=== PATIENT | female | born 1945 | race Caucasian/White ===

== ENCOUNTER 2020-03-18 08:57 | Outpatient (CLI) | payer MEDICARE ==
--- NOTE | 2020-03-18 13:17 | ULT ---
COMPLETE ABDOMEN ULTRASOUND: 03/18/20 INDICATION: History of left sided abdominal pain. TECHNIQUE: Haddad scale, color Doppler with spectral Doppler image were obtained of the abdomen. FINDINGS: Overlying bowel gas slightly limits image detail. The visualized aspects of the abdominal aorta and IVC were within normal limits. No focal hepatic lesion is evident. The gallbladder appears within normal limits. No sonographic Murp hy's sign is reported. Common bile duct measures 4 mm. The visualized aspects of the pancreas were un remarkable appearing. The right kidney measures 9.6 x 4.6 x 4.7 cm. Left kidney measures 9.3 x 4.5 x 4.6 cm. There is a sup erior left renal cyst measuring 4 cm. No hydronephrosis is demonstrated. Appropriate hepatopedal flow is seen within the main portal vein. IMPRESSION: 1. No acute sonographic abnormality within the abdomen. 2. Left renal cyst. POS: BH
== END 2020-03-18 08:58 | disposition home or self-care (01) ==
LOC: BICULT 08:57
PROVIDERS: ATTEND Internal Medicine Gastroenterology
DX: K59.00 Constipation, unspecified (principal); R10.9 Unspecified abdominal pain; N28.1 Cyst of kidney, acquired
CPT/HCPCS: 93975

== ENCOUNTER 2020-10-13 13:41 | Outpatient (CLI) | payer MEDICARE ==
--- NOTE | 2020-10-13 14:52 | RAD ---
Lumbar spine 4 views weightbearing with flexion and extension HISTORY: Low back pain. FINDINGS: There are 5 lumbar type vertebrae. Pedicles are intact. Prominent leftward convex rotatory scoliotic curvature. Vertebral body heights are maintained. Disc space narrowing and endplate sclerosis are most pronounce d at the L2-3 level. Minimal degenerative retrolisthesis at the L2-3 and L3-4 levels does not change upon flexion or exten pratik. Prominent osteophytosis throughout the facets. 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 No acute osseous abnormalities are demonstrat ed.
--- NOTE | 2020-10-13 14:55 | MRI ---
MRI Lumbar Spine Noncontrast: HISTORY: Low back pain on and off for years with tingling in legs. COMPARISON: None FINDINGS: There is a circumscribed hyperintense lesion posterior aspect left kidney with corresponding decrease d T1-weighted signal intensity most compatible with a cyst. A tiny subcentimeter increased T2-weighted signal intensity exophytic cystic lesion is seen inferior pole right kidney which is diff icult to characterize but statistically also represents a cyst. Conus medullaris is normal in morphology and terminates at the L1 level. There is mild atrophy of the paraspinous musculature. Scattered Schmorl's nodes are seen at multiple levels with prominent degenerative changes at the L2-3 level and L4-5 levels. Left convex scoliosis lumbar spine is present. L1-2: Mild disc osteophyte complex and mild facet degenerative changes. There is slight effacement of the anterior aspect of the thecal sac. Neural foramina are patent. L2-3: Prominent endplate degenerative changes. There is severe loss of intervertebral disc height. Br oad-based disc osteophyte complex and mild facet hypertrophic changes are present. Findings result in mild central canal and right-sided neural foraminal narrowing. The left neural foramen is patent. L3-4: Mild loss of intervertebral disc height. Disc osteophyte complex is present resulting in slight effacement of the ventral aspect of the thecal sac. Mild facet degenerative changes are noted. There is no significant central canal narrowing or neural foraminal narrowing. L4-5: Mild disc osteophyte complex. Facet hypertrophic changes are present at this level. There is fl uid signal intensity seen within the right sided facet joint. Mild ligamentous thickening is present. There is mild generalized narrowing of the central spinal canal. There is encroachment on th e traversing bilateral L5 nerve roots. No significant right-sided neural foraminal narrowing is present, and the left neural foramen demonstrates mild narrowing. L5-S1: Loss of intervertebral disc height. Broad-based disc osteophyte complex is present with facet hypertrophic changes. Mild left-sided neural foraminal narrowing is present. The right neural foramen and central canal are patent. IMPRESSION: 1. Left convex scoliosis thoracolumbar spine with multilevel degenerative changes throughout the lumb ar spine. 2. Left renal cyst with probable tiny right renal cyst.
== END 2020-10-13 13:42 | disposition home or self-care (01) ==
LOC: BICMRI 13:41
PROVIDERS: ATTEND Nurse Practitioner Family
DX: M47.26 Other spondylosis with radiculopathy, lumbar region (principal); N28.1 Cyst of kidney, acquired; M41.9 Scoliosis, unspecified
CPT/HCPCS: 72110; 72148

== ENCOUNTER 2022-05-30 11:03 | Outpatient (CLI) | payer MEDICARE | END 2022-05-30 11:04 | disposition home or self-care (01) | LOC: LABBT 11:03 | PROVIDERS: ATTEND Orthopaedic Surgery | DX: Z01.818 Encounter for other preprocedural examination (principal); M17.12 Unilateral primary osteoarthritis, left knee; Z20.822 Contact with and (suspected) exposure to COVID-19 | CPT/HCPCS: 71046; 80048; 81003; 85025; 85610; 86850; 86900; 86901; 87081; 87811; 93005; 93010 ==

== ENCOUNTER 2022-06-04 05:53 | Observation (INO) | payer MEDICARE ==
[2022-05-30 12:18] LABS: #Basophils 0.1 10x3/uL (0.0-0.2); #Eosinphils 0.1 10x3/uL (0.0-0.5); #Monocytes 0.5 10x3/uL (0.0-1.1); #Neutrophils 3.7 10x3/uL (1.5-8.4); %Basophils 1.3 % (0.0-2.0); %Eosinophils 1.3 % (0.0-6.0); %Lymphocytes 27.8 % (18.0-47.0); %Monocytes 8.7 % (0.0-10.0); %Neutrophils 60.2 % (40.0-75.0); Bilirubin Neg (Negative); Blood, Urine 25 (Negative); Clarity Clear (Clear); Glucose, Urine (Dipstick) Normal (Negative); Hemoglobin 13.5 g/dL (12.0-15.5); Ketone, Urine Negative (Negative); Leukocyte 100 (Negative); Mean Corpuscular HGB CONC 35.2 g/dL (32.0-36.0); Mean Corpuscular Hemoglobin 32.2 pg (27.0-33.0); Mean Corpuscular Volume 91.4 fl (81.6-98.3); Mean Platelet Volume 9.4 fl (7.4-10.4); Nitrite Negative (Negative); Platelet Count 253 10x3/uL (150-450); Protein, Urine (Dipstick) Negative (Neg-Trace); RBC Distribution Width 12.7 % (11.5-14.5); Red Blood Cell (RBC) Count 4.19 10x6/uL (3.90-5.03); Urobilinogen Normal mg/dL (Less than 2); White Blood Cell (WBC) Count 6.1 10x3/uL (3.5-10.5)
[2022-05-30 12:36] LABS: Prothrombin Time 10.9 sec (9.5-12.1)
[2022-05-30 12:38] LABS: Anion Gap 13 mmol/L (10-20); BUN (Urea Nitrogen) 11 mg/dL (9.8-20.1); Calc. Creatinine Clearance 0 mL/min (70-130); Calcium 9.4 mg/dL (7.8-10.44); Carbon Dioxide 25 mmol/L (23-31); Chloride 98 mmol/L (98-107); Estimated GFR 80; Glucose 96 mg/dL (83-110); Potassium 4.1 mmol/L (3.5-5.1); Sodium 132 mmol/L (136-145)
[2022-06-01 08:19] VITALS: BMI 28.1
[2022-06-04] MEDS ORDERED: CEFAZOLIN 2 GM VIAL ONE (06:10)
[2022-06-04] MEDS ORDERED: Tranexamic Acid 1,000 MG/10 ML VIAL ONE ×2 (06:10→09:14)
[2022-06-04] MEDS ORDERED: Sodium Chloride 0.9% 100 ML ONE (06:10)
[2022-06-04] MEDS ORDERED: Vancomycin 1 GM/200 ML BAG ONE (06:11)
[2022-06-04] MEDS ORDERED: Midazolam HCl 2 mg/2 ml Vial ONE (06:27)
[2022-06-04] MEDS ORDERED: fentaNYL Citrate/PF 100 MCG/2 ML SYRINGE ONE ×2 (06:27→07:39)
[2022-06-04] MEDS ORDERED: Bupivacaine PF 0.5% 30 ML VIAL ONE (06:32)
[2022-06-04] MEDS ORDERED: Scopolamine 1.5 mg/72 hour Patch ONE (06:41)
[2022-06-04] MEDS ORDERED: Phenylephrine 10 MG/ML VIAL ONE (07:22)
[2022-06-04] MEDS ORDERED: Ondansetron PF 4 MG/2 ML Vial ONE ×3 (07:22→08:30)
[2022-06-04] MEDS ORDERED: Ketorolac Tromethamine 30 MG/ML VIAL ONE (07:22)
[2022-06-04] MEDS ORDERED: ePHEDrine 50 MG/ML VIAL ONE (07:22)
[2022-06-04] MEDS ORDERED: Metoclopramide HCl 10 MG/2 ML VIAL ONE (07:22)
[2022-06-04] MEDS ORDERED: Dexamethasone 20 MG/5 ML VIAL ONE (07:22)
[2022-06-04] MEDS ORDERED: PROPOFOL 200 MG/20 ML VIAL ONE (07:22)
[2022-06-04] MEDS ORDERED: Bupivacaine HCl 0.5%/Epinephrine 1:200,000/PF 30 ml Vial ONE (07:22)
[2022-06-04] MEDS ORDERED: diphenhydrAMINE 50 MG/ML VIAL ONE (07:22)
[2022-06-04] MEDS ORDERED: Zolpidem Tartrate 5 MG TAB PO PRN ×2 (07:29→08:00)
[2022-06-04] MEDS ORDERED: Ondansetron PF 4 MG/2 ML Vial IVP PRN ×2 (07:29→08:00)
[2022-06-04] MEDS ORDERED: Acetaminophen 325 MG TAB PO PRN (07:29)
[2022-06-04] MEDS ORDERED: Promethazine HCl 25 MG/ML VIAL IM PRN ×2 (07:29→08:00)
[2022-06-04] MEDS ORDERED: HYDROcodone/Acetaminophen 10/325 mg Tablet PO PRN ×3 (07:29→08:00)
[2022-06-04] MEDS ORDERED: diphenhydrAMINE 25 MG CAP PO PRN (07:29)
[2022-06-04] MEDS ORDERED: traMADol HCl 50 MG TAB PO PRN ×3 (07:29→08:00)
[2022-06-04] MEDS ORDERED: Fentanyl 100 MCG/2 ML VIAL SLOW IVP PRN ×2 (07:29→07:56)
[2022-06-04] MEDS ORDERED: Tranexamic Acid 1,000 MG in Sodium Chloride 0.9% 100 ML IVPB SCH (07:30)
[2022-06-04] MEDS ORDERED: Loratadine 10 MG TAB PO PRN (07:31)
[2022-06-04] MEDS ORDERED: Ropivacaine 0.2% 550 ML 550 ML NERVE BLCK SCH (08:00)
[2022-06-04] MEDS ORDERED: Calcium Polycarbophil 625 MG TAB PO SCH (09:00)
[2022-06-04] MEDS ORDERED: Fentanyl 100 MCG/2 ML VIAL ONE ×2 (09:18→09:56)
[2022-06-04] MEDS: Aspirin 81 mg Enteric Coated Tablet PO SCH ×2 (11:09→20:55)
[2022-06-04] MEDS: Ketorolac Tromethamine 30 MG/ML VIAL IVP SCH ×3 (12:10→23:29)
[2022-06-04] MEDS: Sodium Chloride 0.9% 1,000 ML IV SCH ×2 (12:13→17:39)
[2022-06-04] MEDS ORDERED: Betamethasone 0.1% Cream 15 GM TUBE TOP PRN (12:34)
[2022-06-04] MEDS: HYDROcodone/Acetaminophen 10/325 mg Tablet PO PRN ×2 (15:51→20:56)
[2022-06-04] MEDS: CEFAZOLIN 2 GM in Sodium Chloride 0.9% 100 ML IVPB SCH ×2 (16:26→23:28)
[2022-06-04] MEDS ORDERED: Vancomycin 1 GM in Premix Bag 1 BAG IVPB SCH (20:00)
[2022-06-04] MEDS: Lorazepam 1 MG TAB PO SCH (20:55)
[2022-06-04] MEDS: Estradiol 0.01% Vaginal Cream 42.5 gm Tube VAG SCH (20:55)
[2022-06-05] MEDS: Sodium Chloride 0.9% 1,000 ML IV SCH ×3 (04:01→23:41)
[2022-06-05] MEDS: Levothyroxine Sodium 100 MCG TAB PO SCH (05:22)
[2022-06-05] MEDS: Ketorolac Tromethamine 30 MG/ML VIAL IVP SCH ×3 (05:22→18:45)
[2022-06-05 05:50] LABS: Mean Corpuscular HGB CONC 34.8 g/dL (32.0-36.0); Mean Corpuscular Hemoglobin 34.1 pg (27.0-31.0); Mean Corpuscular Volume 98.1 fL (78.0-98.0); Platelet Count 182 thou/uL (130-400); RBC Distribution Width 11.7 % (11.5-14.5); Red Blood Cell (RBC) Count 3.22 mill/uL (4.20-5.40)
[2022-06-05] MEDS ORDERED: Calcium Polycarbophil 625 MG TAB PO SCH (09:00)
[2022-06-05] MEDS: HYDROcodone/Acetaminophen 10/325 mg Tablet PO PRN ×3 (09:57→20:49)
[2022-06-05] MEDS: Ferrous Gluconate 324 MG TAB PO SCH ×2 (09:58→18:43)
[2022-06-05] MEDS: Aspirin 81 mg Enteric Coated Tablet PO SCH ×2 (09:58→20:50)
[2022-06-05] MEDS: Senokot S 8.6-50 MG TAB PO SCH ×2 (09:59→20:50)
[2022-06-05] MEDS: Multivitamin W/ Minerals 1 TAB PO SCH (10:00)
[2022-06-05] MEDS: Lorazepam 1 MG TAB PO SCH (20:50)
[2022-06-05] MEDS: Estradiol 0.01% Vaginal Cream 42.5 gm Tube VAG SCH (20:52)
[2022-06-06] MEDS: Ketorolac Tromethamine 30 MG/ML VIAL IVP SCH ×2 (00:39→07:20)
[2022-06-06 06:56] LABS: Hemoglobin 10.7 g/dL (12.0-16.0); Mean Corpuscular HGB CONC 34.4 g/dL (32.0-36.0); Mean Corpuscular Hemoglobin 33.8 pg (27.0-31.0); Mean Corpuscular Volume 98.3 fL (78.0-98.0); Mean Platelet Volume 7.1 fL (7.4-10.4); Platelet Count 169 thou/uL (130-400); RBC Distribution Width 12.1 % (11.5-14.5); Red Blood Cell (RBC) Count 3.16 mill/uL (4.20-5.40); White Blood Cell (WBC) Count 7.6 thou/uL (4.8-10.8)
[2022-06-06] MEDS: Levothyroxine Sodium 100 MCG TAB PO SCH (07:21)
[2022-06-06] MEDS: Senokot S 8.6-50 MG TAB PO SCH (08:06)
[2022-06-06] MEDS: Ferrous Gluconate 324 MG TAB PO SCH (08:06)
[2022-06-06] MEDS: Multivitamin W/ Minerals 1 TAB PO SCH (08:07)
[2022-06-06] MEDS: Aspirin 81 mg Enteric Coated Tablet PO SCH (08:07)
[2022-06-06 11:41] VITALS: BP 128/74; TEMP 97.4
== END 2022-06-06 15:56 ==
LOC: SDC 05:53 → SURG A 07:29 → EDSTATUS 11:00
PROVIDERS: ADMIT Orthopaedic Surgery; ATTEND Orthopaedic Surgery
PROC: 3E0T3BZ Introduction of Anesthetic Agent into Peripheral Nerves and Plexi, Percutaneous Approach (ICD-10-PCS; principal; 2022-06-04)
PROC: 0SRD0J9 Replacement of Left Knee Joint with Synthetic Substitute, Cemented, Open Approach (ICD-10-PCS; 2022-06-04)
PROC: 8E0YXBZ Computer Assisted Procedure of Lower Extremity (ICD-10-PCS; 2022-06-04)
DX: M17.0 Bilateral primary osteoarthritis of knee (principal); E03.9 Hypothyroidism, unspecified; I10 Essential (primary) hypertension; Z79.890 Hormone replacement therapy; Z79.899 Other long term (current) drug therapy; Z88.1 Allergy status to other antibiotic agents; Z20.822 Contact with and (suspected) exposure to COVID-19
CPT/HCPCS: 20985; 27447; 64448; 85027 ×2; 97110 ×2; 97116 ×3; 97530; A4306; C1713; C1776; 36415; 80048; 81003; 85025; 85610; 86850; 86900; 86901; 87081; 87811; J0690; J1100; J1200; J1885; J2250; J2370; J2405; J2704; J2765; J2795; J3010; J3370; J3490; J7050; S0020

== ENCOUNTER 2022-09-21 10:17 | Outpatient (CLI) | payer MEDICARE | END 2022-09-21 10:18 | disposition home or self-care (01) | LOC: TBSIIMAG 10:17 | PROVIDERS: ATTEND Nurse Practitioner Family | DX: M50.10 Cervical disc disorder with radiculopathy, unspecified cervical region (principal) | CPT/HCPCS: 72141 ==

== ENCOUNTER → 2023-07-15 | Day surgery (SDC) | payer MEDICARE ==
[~2023-07-15] MED LIST: EPINEPHrine 1 MG/ML AMP ONE; Iopamidol 300 61% 100 ML VIAL FS ONE; Lidocaine 1% PF 5 ML VIAL ONE; Sodium Chloride 0.9% 50 ML BAG ONE
== END ==
LOC: RAD 12:38
PROVIDERS: ATTEND Orthopaedic Surgery
DX: S52.122A Displaced fracture of head of left radius, initial encounter for closed fracture (principal); S52.042A Displaced fracture of coronoid process of left ulna, initial encounter for closed fracture; X58.XXXA Exposure to other specified factors, initial encounter
CPT/HCPCS: 24220; J0171; Q9967

== ENCOUNTER 2023-07-18 10:02 | Day surgery (SDC) | payer MEDICARE ==
[2023-07-17 13:56] VITALS: BMI 31.6
[2023-07-18] MEDS ORDERED: Vancomycin (BATCH) 1.5 GRAM/300 ML BAG ONE (10:42)
[2023-07-18] MEDS ORDERED: Tranexamic Acid 1,000 MG/10 ML VIAL ONE (10:42)
[2023-07-18] MEDS ORDERED: Sodium Chloride 0.9% 100 ML ONE ×2 (10:42→11:27)
[2023-07-18 10:50] LABS: #Basophils 0.1 thou/uL (0.0-0.2); #Eosinphils 0.2 thou/uL (0.0-0.7); #Monocytes 0.7 thou/uL (0.11-0.59); #Neutrophils 5.1 thou/uL (1.40-6.50); %Eosinophils 1.9 % (0.0-10.0); %Lymphocytes 21.8 % (21.0-51.0); %Monocytes 8.7 % (0.0-10.0); %Neutrophils 65.6 % (42.0-75.0); Hematocrit 36.4 % (36.0-47.0); Hemoglobin 12.3 g/dL (12.0-16.0); Mean Corpuscular HGB CONC 33.8 g/dL (32.0-36.0); Mean Corpuscular Hemoglobin 31.4 pg (27.0-31.0); Mean Corpuscular Volume 92.9 fl (78.0-98.0); Platelet Count 214 10x3/uL (130-400); Red Blood Cell (RBC) Count 3.92 mill/uL (4.20-5.40); White Blood Cell (WBC) Count 7.7 10x3/uL (4.8-10.8)
[2023-07-18] MEDS ORDERED: fentaNYL PF 100 MCG/2 ML SYRINGE ONE (11:14)
[2023-07-18 11:17] LABS: Anion Gap 9 mmol/L (10-20); BUN (Urea Nitrogen) 18 mg/dL (9.8-20.1); Calc. Creatinine Clearance 63 mL/min (70-130); Calcium 9.2 mg/dL (7.8-10.44); Carbon Dioxide 24 mmol/L (23-31); Chloride 97 mmol/L (98-107); Estimated GFR 57; Glucose 89 mg/dL (83-110); Potassium 4.3 mmol/L (3.5-5.1); Sodium 126 mmol/L (136-145)
[2023-07-18] MEDS ORDERED: CEFAZOLIN 2 GM VIAL ONE (11:27)
[2023-07-18] MEDS ORDERED: Midazolam HCl 2 mg/2 ml Vial ONE (11:28)
[2023-07-18] MEDS ORDERED: fentaNYL 50 mcg/mL 1 mL Vial ONE (11:28)
[2023-07-18] MEDS ORDERED: Bupivacaine PF 0.5% 30 ML VIAL ONE (11:28)
[2023-07-18] MEDS ORDERED: Bupivacaine HCl 0.5%/Epinephrine 1:200,000/PF 30 ml Vial ONE (11:50)
[2023-07-18] MEDS ORDERED: Rocuronium Bromide 10 MG/ML (10ML VIAL) ONE (11:58)
[2023-07-18] MEDS ORDERED: Metoclopramide HCl 10 MG/2 ML VIAL ONE (11:58)
[2023-07-18] MEDS ORDERED: Ondansetron PF 4 MG/2 ML Vial ONE (11:58)
[2023-07-18] MEDS ORDERED: Lidocaine 1% PF 5 ML VIAL ONE (11:58)
[2023-07-18] MEDS ORDERED: PROPOFOL 200 MG/20 ML VIAL ONE (11:58)
[2023-07-18] MEDS ORDERED: Dexamethasone 20 MG/5 ML VIAL ONE (11:58)
[2023-07-18] MEDS ORDERED: Ropivacaine 0.2% 550 ML 550 ML NERVE BLCK SCH (12:15)
[2023-07-18] MEDS ORDERED: Zolpidem Tartrate 5 MG TAB PO PRN (12:15)
[2023-07-18] MEDS ORDERED: Ondansetron PF 4 MG/2 ML Vial IVP PRN (12:15)
[2023-07-18] MEDS ORDERED: traMADol HCl 50 MG TAB PO PRN ×2 (12:15)
[2023-07-18] MEDS ORDERED: Promethazine HCl 25 MG/ML VIAL IM PRN (12:15)
[2023-07-18] MEDS ORDERED: HYDROcodone/Acetaminophen 10/325 mg Tablet PO PRN ×2 (12:15)
[2023-07-18] MEDS ORDERED: SUGAMMADEX SODIUM 200 MG/2 ML VIAL ONE (13:25)
[2023-07-18 16:08] LABS: Anion Gap 9 mmol/L (10-20); BUN (Urea Nitrogen) 16 mg/dL (9.8-20.1); Calc. Creatinine Clearance 67 mL/min (70-130); Calcium 8.9 mg/dL (7.8-10.44); Carbon Dioxide 23 mmol/L (23-31); Chloride 100 mmol/L (98-107); Estimated GFR 62; Glucose 107 mg/dL (83-110); Potassium 4.2 mmol/L (3.5-5.1); Sodium 128 mmol/L (136-145)
== END 2023-07-18 16:35 | disposition home or self-care (01) ==
LOC: SDC 10:02
PROVIDERS: ATTEND Orthopaedic Surgery
PROC: 0PRJ0JZ Replacement of Left Radius with Synthetic Substitute, Open Approach (ICD-10-PCS; principal; 2023-07-18)
PROC: 0MQ90ZZ Repair Right Upper Extremity Bursa and Ligament, Open Approach (ICD-10-PCS; 2023-07-18)
DX: S52.122A Displaced fracture of head of left radius, initial encounter for closed fracture (principal); S52.042A Displaced fracture of coronoid process of left ulna, initial encounter for closed fracture; S53.105A Unspecified dislocation of left ulnohumeral joint, initial encounter; E03.9 Hypothyroidism, unspecified; K57.30 Diverticulosis of large intestine without perforation or abscess without bleeding; K44.9 Diaphragmatic hernia without obstruction or gangrene; I10 Essential (primary) hypertension; H91.93 Unspecified hearing loss, bilateral; Z90.710 Acquired absence of both cervix and uterus; Z88.1 Allergy status to other antibiotic agents; Z98.890 Other specified postprocedural states; Z79.890 Hormone replacement therapy; Z79.899 Other long term (current) drug therapy; X58.XXXA Exposure to other specified factors, initial encounter
CPT/HCPCS: 24343; 24344; 24365; 73070; 80048 ×2; 85025; 93005; A4306; C1776 ×2; J3010; J3370; 36415; 93010; C1713; J1100; J2250; J2405; J2704; J2765; J2795; J3490; S0020

== ENCOUNTER 2023-12-10 12:11 | Outpatient (CLI) | payer MEDICARE | END 2023-12-10 12:12 | disposition home or self-care (01) | LOC: BICULT 12:11 | PROVIDERS: ATTEND Family Medicine | DX: N28.89 Other specified disorders of kidney and ureter (principal); N28.1 Cyst of kidney, acquired | CPT/HCPCS: 76770 ==